=== PATIENT | female | born 1985 | race Caucasian/White ===

== ENCOUNTER 2017-01-15 08:50 | Emergency (ER) | payer BC ==
--- NOTE | 2017-01-15 08:58 | PDOC ---
History of Present Illness - General Chief Complaint: Pain, Acute Stated Complaint: RIGHT ANKLE/FOOT PAIN Time Seen by Provider: 01/15/17 08:58 History Source: Patient Exam Limitations: No Limitations - History of Present Illness Initial Comments: 01/15/17 09:37 hx of old 5th MT fx years ago Method of Injury: Yes: twisted Modifying Factors: improves with: None Lower Ext. Injury Location - Specific Injury Location Hips: right hip: no evidence of injury Legs: right: normal inspection Knees: right no evidence of injury Ankle: right no evidence of injury Foot: right foot normal range of motion, right foot bone tenderness, right foot pain Extremity Pain Location - Extremity Pain Location Extremity Pain Locations: right: foot (tender 5th MT, no malleolar tenderness) Past History - Past Medical History Allergies/Adverse Reactions: Allergies Allergy/AdvReac Type Severity Reaction Status Date / Time No Known Allergies Allergy Verified 01/15/17 08:52 Home Medications: Ambulatory Orders Albuterol 0.083% Nebulizer Cira [Ventolin 0.083%] 1 neb NEB PRN 11/25/14 Dextroamphetamine/Amphetamine [Adderall Xr 30 mg Capsule] 20 mg PO DAILY Ibuprofen [Motrin -] 400 mg PO QID PRN #28 tablet 01/15/17 Asthma: Yes - Psycho/Social/Smoking Cessation Hx Anxiety: No Suicidal Ideation: No Smoking History: Never smoked Hx Alcohol Use: Yes Drug/Substance Use Hx: No Substance Use Type: Alcohol Review of Systems - Review of Systems Constitutional: No: Symptoms Reported HEENTM: No: Symptoms Reported Respiratory: No: Symptoms reported Cardiac (ROS): No: Symptoms Reported ABD/GI: No: Symptoms Reported : No: Symptoms Reported Musculoskeletal: Yes: Other (right foot pain) Integumentary: No: Symptoms Reported Neurological: No: Symptoms reported All Other Systems: Reviewed and Negative *Physical Exam - Vital Signs Last Vital Signs Temp Pulse Resp BP Pulse Ox 97.7 F 65 16 118/77 100 01/15/17 08:51 01/15/17 08:51 01/15/17 08:51 01/15/17 08:51 01/15/17 08:51 - Physical Exam Comments: 01/15/17 09:10 FOCUSED EXAM Extremity: positive: Other (RIGHT FOOT TENDERNESS LATERALLY OVER 5TH MT, full rom, good sensation and capillary refill) Medical Decision Making - Medical Decision Making 01/15/17 09:59 posterior splint applied and crutches *DC/Admit/Observation/Transfer Diagnosis at time of Disposition: Foot contusion - Discharge Dispostion Disposition: HOME Condition at time of disposition: Stable Admit: No - Prescriptions Prescriptions: Ibuprofen [Motrin -] 400 mg PO QID PRN #28 tablet PRN Reason: Pain - Referrals Referrals: Gautam Robles MD [Staff Physician] - - Patient Instructions Printed Discharge Instructions: Contusion
[2017-01-15 09:05] VITALS: BP 118/77; PULSE 65; TEMP 97.7; BMI 23.1
[2017-01-15] MEDS ORDERED: IBUPROFEN 400 MG TABLET (FP) PO ONE ×2 (10:00→10:06)
== END 2017-01-15 10:35 | disposition home or self-care (01) ==
LOC: FER 08:50
PROC: 2W3SX1Z Immobilization of Right Foot using Splint (ICD-10-PCS; principal; 2017-01-15)
DX: S90.31XA Contusion of right foot, initial encounter (principal); X58.XXXA Exposure to other specified factors, initial encounter; Y93.9 Activity, unspecified; Y92.9 Unspecified place or not applicable; J45.909 Unspecified asthma, uncomplicated
CPT/HCPCS: 73630-TC-RT; 99283-25